=== PATIENT | female | born 1960 | race Hispanic/Latino ===

== ENCOUNTER 2017-06-28 05:46 | Day surgery (SDC) | payer BC, MEDICARE ==
[~2017-06-28 05:46] MED LIST: ANCEF/STERILE WATER 2 GM/20 ML 2 GM/20 ML SYRINGE IV NR; NACL 0.9% 1000 ML 1,000 ML IV SCH
[2017-06-28] MEDS ORDERED: NACL 0.9% 1000 ML 1,000 ML IV SCH (06:00)
[2017-06-28] MEDS ORDERED: ANCEF/STERILE WATER 2 GM/20 ML 2 GM/20 ML SYRINGE IV NR (06:00)
[2017-06-28 06:33] LABS: Hematocrit 39.6 % (30.3-42.9); Hemoglobin 13.4 gm/dl (10.1-14.3); Mean Corpuscular HGB Conc 34 % (30-34); Mean Corpuscular Hemoglobin 35 pg (28-32); Mean Corpuscular Volume 102 fl (79-97); Platelet Count 414 K/mm3 (140-440); Red Blood Count 3.88 M/mm3 (3.65-5.03); Red Cell Distribution Width 14.2 % (13.2-15.2); White Blood Count 15.4 K/mm3 (4.5-11.0)
[2017-06-28 06:44] LABS: Calcium 9.1 mg/dL (8.4-10.2); Chloride 101.4 mmol/L (98-107)
[2017-06-28 06:53] LABS: Potassium 4.5 mmol/L (3.6-5.0)
[2017-06-28] MEDS ORDERED: NACL 0.9% 500 ML 500 ML IV SCH (07:00)
[2017-06-28] MEDS ORDERED: HEPARIN/NS 5000 UNIT/500ML(CATH LAB) 1,000 ML IR ONE (07:32)
[2017-06-28] MEDS ORDERED: XYLOCAINE 2% INFILTRATI ONE (07:32)
[2017-06-28] MEDS ORDERED: HEPARIN 10,000 UNITS/10 ML ONE (07:32)
[2017-06-28] MEDS ORDERED: VERSED ONE ×2 (07:32→07:54)
[2017-06-28] MEDS: SUBLIMAZE ONE ×2 (07:45→08:01)
[2017-06-28 07:53] LABS: Basophils % (Manual) 0 % (0.0-1.8); Blastocytes % (Manual) 0 %; Eosinophils % (Manual) 0 % (0.0-4.3)
[2017-06-28] MEDS ORDERED: BENADRYL ONE (07:53)
[2017-06-28 07:54] LABS: Diff Status Complete; Platelet Estimate Consistent w Auto; RBC Morphology Normal
[2017-06-28] MEDS ORDERED: NORCO 5/325 PO ONE (09:30)
--- NOTE | 2017-06-28 09:35 | Short Stay Summary ---
Short Stay Documentation Date of service: 06/28/17 - History Principal diagnosis: PVD with claudication bilateral lower extremities H&P: obtained from office - Allergies and Medications Current Medications: Allergies sulfamethoxazole [From Bactrim] Allergy (Severe, Verified 06/28/17 06:24) Tongue swelling trimethoprim [From Bactrim] Allergy (Severe, Verified 06/28/17 06:25) Tongue swelling codeine Allergy (Intermediate, Verified 06/28/17 06:22) Itching Sulfa (Sulfonamide Antibiotics) Adverse Reaction (Severe, Verified 06/28/17 06: 24) yeast infection Home Medications Medication Instructions Recorded Confirmed Last Taken Type Aspirin EC [Ecotrin] 325 mg PO QDAY PRN 06/28/17 06/28/17 06/27/17 History AtorvaSTATin [Lipitor] 40 mg PO QHS 06/28/17 06/28/17 06/27/17 History Clopidogrel Bisulfate [Clopidogrel] 75 mg PO QDAY 06/28/17 06/28/17 06/27/17 History Estrogens, Conjugated [Premarin] 1.25 mg PO QDAY 06/28/17 06/28/17 06/27/17 History Active Medications Cefazolin Sodium (Ancef/Sterile Water 2 Gm/20 Ml) 2 gm in 20 mls @ 80 mls/hr IV PREOP NR PRN Reason: Protocol Stop: 06/28/17 23:59 Sodium Chloride (Nacl 0.9% 500 Ml) 500 mls @ 50 mls/hr IV DIRECT LINDEN Last Admin: 06/28/17 06:40 Dose: 50 mls/hr Morphine Sulfate (Morphine) 2 mg IV ONCE ONE Stop: 06/28/17 10:01 Last Admin: 06/28/17 09:22 Dose: 2 mg - Brief post op/procedure progress note Date of procedure: 06/28/17 Pre-op diagnosis: PVD with claudication bilateral lower extremities Post-op diagnosis: same Procedure: Bilateral iliac stent placement Anesthesia: local Surgeon: LORY BELL Estimated blood loss: none Pathology: none Condition: stable - Disposition Condition at discharge: Good Disposition: [id number] TO HOME OR SELFCARE Short Stay Discharge Plan Activity: advance as tolerated Weight Bearing Status: Weight Bear as Tolerated Diet: regular Wound: keep clean and dry, per your surgeon's advice, other (remove pressure dressings before bed tonight) Follow up with: GURMEET WHITE MD [Primary Care Provider] - 7 Days
--- NOTE | 2017-06-28 09:41 | Operative Report ---
Operative Report Operative Report: EXAM: BILATERAL LOWER EXTREMITY ANGIOGRAM, BILATERAL PLACEMENT OF KISSING ILIAC STENTS CLINICAL INDICATION: PATIENT WITH A HISTORY OF PERIPHERAL VASCULAR DISEASE WITH BILATERAL LOWER EXTREMITY CLAUDICATION LEFT GREATER THAN RIGHT DATE: 06/28/2017 PROCEDURE: Following an explanation of the risks, benefits and alternatives; written informed consent was obtained. The patient was brought to the angiographic suite and placed in supine position on the examination table. Initial ultrasound evaluation of the groins demonstrated patent bilateral common femoral arteries. The patient's bilateral groins were prepped and draped in the usual sterile fashion. 1% lidocaine was used for anesthesia. Under ultrasound guidance, the right common femoral artery was cannulated with a 7 cm 21-gauge needle. A 0.018 guidewire was advanced centrally under fluoroscopy. The needle was removed and a micro-sheath placed. The 0.018 guidewire was exchanged for a 0.035 guidewire and the micro-sheath exchanged for a 5 [place] vascular sheath. Access to the left common femoral artery was performed in a similar fashion and an additional 5 [place] vascular sheath placed in the left common femoral artery. Angiography performed through bilateral sheaths reflux contrast into the distal abdominal aorta to allow and abdominal aortogram and bilateral lower extremity angiogram with imaging centered on the pelvis. There is a 70% stenosis within the origin of the left common iliac artery. There is a 30% stenosis within the distal abdominal aorta and a 30% stenosis within the proximal right common iliac artery. Previously placed stents in the bilateral common iliac arteries are noted. The stenoses appeared just proximal to the stents. Both 5 [place] sheaths were then upsized a 7 [place]oan sheaths over a 0.035 guidewires under fluoroscopy. An 8 mm x 39 mm [place] VBX balloon-expandable stent was advanced through the left sheath and positioned across the lesion in the left common iliac artery. The stent was advanced to also cover the distal abdominal aortic stenosis. A second 8 mm x 39 mm [place] VBX balloon-expandable stent was then advanced through the right sheath and positioned across the lesion in the right common iliac artery as well as advanced to cover the distal abdominal aortic stenosis. The stents were then deployed in kissing fashion insufflated to 10 robles for 30 seconds. The balloons were then removed. Post stent placement imaging performed through bilateral sheaths demonstrated reduction of the distal abdominal aortic stenosis to 10%. The left common iliac artery stenosis was reduced to 0% and the right common iliac artery stenosis was reduced to 0%. Given the diminutive size of the patient's bilateral common femoral arteries, following the removal of sheaths hemostasis was achieved using manual compression. Compression dressings were then applied. The patient tolerated the procedure well. There were no immediate post procedure complications. Conscious sedation was performed under the guidance of radiologic nursing. Continuous cardiopulmonary monitoring was utilized. IMPRESSION: 1) Abdominal aortogram and bilateral lower extremity angiogram centered on the pelvis demonstrating 30% stenosis within the distal abdominal aorta 70% stenosis within the origin of the left common iliac artery and 30% stenosis within the proximal right common iliac artery. 2) Treatment of the 3 aforementioned lesions using kissing balloon expandable covered stents.
[2017-06-28] MEDS ORDERED: MORPHINE IV ONE (10:00)
[2017-06-28 12:35] VITALS: BP 116/65
== END 2017-06-28 12:45 | disposition home or self-care (01) ==
LOC: CATHLABREC 05:46
PROVIDERS: ATTEND Radiology Diagnostic Radiology
DX: I70.213 Atherosclerosis of native arteries of extremities with intermittent claudication, bilateral legs (principal); E11.9 Type 2 diabetes mellitus without complications; E78.5 Hyperlipidemia, unspecified; Z88.5 Allergy status to narcotic agent; Z88.2 Allergy status to sulfonamides; Z88.8 Allergy status to other drugs, medicaments and biological substances; Z79.899 Other long term (current) drug therapy; Z79.82 Long term (current) use of aspirin; Z72.0 Tobacco use; Z98.49 Cataract extraction status, unspecified eye; Z90.49 Acquired absence of other specified parts of digestive tract; Z90.710 Acquired absence of both cervix and uterus; Z98.890 Other specified postprocedural states
CPT/HCPCS: 36415; 37221; 75630; 80048; 85007; 85025; 96374; 99156; 99157; C1769; C1894; J1200; J1644; J2250; J2270; J3010; J7040; Q9967